=== PATIENT | female | born 1985 | race African-American/Black ===

== ENCOUNTER 2018-06-14 18:03 | Emergency (ER) | payer MEDICAID ==
[~2018-06-14] VITALS: Ht 167.6 cm; Wt 86.0 kg
[2018-06-14] MEDS ORDERED: TETRACAINE 0.5% OPHTH DROPS 4ML OP ONE (18:45)
[2018-06-14] MEDS ORDERED: FLUORESCEIN SODIUM 1MG/STRIP OP ONE (18:45)
[2018-06-14] MEDS ORDERED: TETANUS, DIPHTHERIA, PERTUSSIS VAC/PF 0.5ML (>7YR OLD) IM ONE (19:15)
[2018-06-14] MEDS ORDERED: SODIUM CHLORIDE 0.9% 1,000 ML IV ONE (19:47)
[2018-06-14] MEDS ORDERED: MORPHINE SULFATE 4 MG/ML CPJ (NOT FOR IM USE) IV STA (19:47)
[2018-06-14] MEDS ORDERED: ONDANSETRON HCL 4MG/2ML INJ IV STA (19:47)
[2018-06-14 20:50] LABS: BASOPHILS % 0.5 % (0.0-2.0); EOSINOPHILS % 0.5 % (0.0-5.0); HEMATOCRIT. 35.3 % (36.0-48.0); HEMOGLOBIN. 11.8 g/dL (12.0-16.0); MEAN CORPUSCULAR HEMOGLOBIN 27.8 pg (28.0-32.0); MEAN CORPUSCULAR VOLUME 83.3 fL (81.0-99.0); MONOCYTES % 4.4 % (2.0-8.0); NEUTROPHILS % 45.6 % (40.0-76.0); PLATELET 229 x1000/uL (130-400); RED BLOOD CELL COUNT 4.24 mill/uL (4.2-5.4); RED CELL DISTRIBUTION WIDTH 16.6 % (11.6-14.6)
[2018-06-14 20:53] LABS: PROTHROMBIN TIME 10.3 sec (9.1-11.1)
[2018-06-14 20:55] LABS: CHLORIDE 111 mEq/L (98-107)
[2018-06-14 21:03] LABS: HCG SCREEN NEGATIVE
[2018-06-15] MEDS ORDERED: HYDROCODONE/ACETAMINOPHEN 5/325MG TABLET PO ONE
[2018-06-15 02:27] VITALS: BP 107/61
== END 2018-06-15 02:30 | disposition home or self-care (01) ==
LOC: ER 18:03
DX: S01.111A Laceration without foreign body of right eyelid and periocular area, initial encounter (principal); H11.31 Conjunctival hemorrhage, right eye; F17.200 Nicotine dependence, unspecified, uncomplicated; Z91.013 Allergy to seafood; Y04.0XXA Assault by unarmed brawl or fight, initial encounter; Y93.89 Activity, other specified; Y92.89 Other specified places as the place of occurrence of the external cause; Y99.8 Other external cause status
CPT/HCPCS: 36415; 80053; 84703; 85025; 85610; 90471; 90715; 96374; 96375; 99284; J2270; J2405; J7030

== ENCOUNTER 2020-07-06 15:11 | Inpatient (IN) | payer MEDICAID ==
[~2020-07-06] VITALS: Ht 177.8 cm; Wt 78.0 kg
[2020-07-06] MEDS ORDERED: NALOXONE HCL 1 MG/ML 2ML VIAL IV ONE (17:00)
[2020-07-06] MEDS ORDERED: DEXAMETHASONE 4MG/ML 1ML VIAL IV ONE (17:45)
[2020-07-06] MEDS ORDERED: AZITHROMYCIN 500 MG in DEXT 5% WATER 250 ML IV SCH (17:45)
[2020-07-06 17:46] LABS: BASOPHILS % 0.3 % (0.0-2.0); EOSINOPHILS % 0.1 % (0.0-5.0); HEMATOCRIT. 38.6 % (36.0-48.0); HEMOGLOBIN. 12.8 g/dL (12.0-16.0); LYMPHOCYTES % 10.8 % (20.0-50.0); MEAN CORPUSCULAR HEMOGLOBIN 27.5 pg (28.0-32.0); MEAN CORPUSCULAR VOLUME 82.5 fL (81.0-99.0); MEAN PLATELET VOLUME 10.6 fl (7.4-10.4); MONOCYTES % 2.1 % (2.0-8.0); NEUTROPHILS % 86.7 % (40.0-76.0); PLATELET 246 x1000/uL (130-400); RED BLOOD CELL COUNT 4.67 mill/uL (4.2-5.4); RED CELL DISTRIBUTION WIDTH 19.1 % (11.6-14.6)
[2020-07-06 17:50] LABS: CHLORIDE 104 mEq/L (98-107)
[2020-07-06] MEDS ORDERED: SODIUM CHLORIDE 0.9% 1,000 ML IV ONE (22:45)
[2020-07-06 22:58] LABS: CLARITY URINE CLOUDY (CLEAR); COLOR URINE YELLOW (YELLOW); KETONES URINE 1+ (NEGATIVE); LEUKOCYTE ESTERASE URINE NEGATIVE (NEGATIVE); NITRITE URINE NEGATIVE (NEGATIVE); OCCULT BLOOD URINE 3+ (NEGATIVE); PROTEIN URINE 1+ (NEGATIVE); SPECIFIC GRAVITY URINE 1.021 (1.005-1.030)
[2020-07-06 23:11] LABS: *BARBITURATES SCREEN URINE NEGATIVE (NEGATIVE); *BENZODIAZEPINES SCREEN URINE NEGATIVE (NEGATIVE); *COCAINE SCREEN URINE NEGATIVE (NEGATIVE); METHADONE URINE SCREEN NEGATIVE (NEGATIVE)
[2020-07-06 23:12] LABS: PHENCYCLIDINE URINE SCREEN NEGATIVE (NEGATIVE)
[2020-07-06 23:23] LABS: *AMPHETAMINES SCREEN URINE PRESUMTIVE POSITIVE (NEGATIVE); CANNABINOID URINE SCREEN PRESUMTIVE POSITIVE (NEGATIVE); OPIATES URINE SCREEN PRESUMTIVE POSITIVE (NEGATIVE)
[2020-07-07] MEDS ORDERED: SODIUM CHLORIDE 0.9% 1,000 ML IV ONE (03:15)
[2020-07-07] MEDS ORDERED: CEFTRIAXONE 1 G PREMIX 50 ML IV SCH (09:15)
[2020-07-07] MEDS ORDERED: ONDANSETRON HCL 4MG/2ML INJ IV PRN (09:15)
[2020-07-07] MEDS ORDERED: ACETAMINOPHEN 325MG TABLET PO PRN (09:15)
[2020-07-07] MEDS ORDERED: CEFTRIAXONE SODIUM 1 G/VIAL ONE (09:56)
[2020-07-07] MEDS: ENOXAPARIN 40MG/0.4ML SYR SUBCUT SCH (10:00)
[2020-07-07] MEDS ORDERED: CEFTRIAXONE 1,000 MG in DEXTROSE 5% WATER 50 ML IV SCH (11:00)
[2020-07-07] MEDS: CEFTRIAXONE 1 G PREMIX 50 ML IV SCH (11:35)
[2020-07-08] MEDS ORDERED: AZITHROMYCIN 250 MG TABLET PO SCH (09:00)
[2020-07-08] MEDS: ENOXAPARIN 40MG/0.4ML SYR SUBCUT SCH (09:58)
[2020-07-08] MEDS: CEFTRIAXONE 1 G PREMIX 50 ML IV SCH (12:27)
[2020-07-08] MEDS ORDERED: LEVO500T2 MT (15:56)
[2020-07-08 16:42] VITALS: BP 112/69
[2020-07-09] MEDS ORDERED: CEFTRIAXONE 1,000 MG in DEXTROSE 5% WATER 50 ML IV SCH (09:00)
[2020-07-23 10:06] LABS: BARBITURATE SCREEN Negative ug/mL (Cutoff:0.1); BENZODIAZEPINE SCREEN Negative ng/mL (Cutoff:20); OPIATES SCREEN Negative ng/mL (Cutoff:5); PHENCYCLIDINE SCREEN Negative ng/mL (Cutoff:8)
== END 2020-07-08 17:00 | disposition home or self-care (01) | DRG 817 ==
LOC: ER 15:11 → MICUSO 21:40 → EDBEDREQTM 21:46 → EDBEDREQ 21:46 → 8WST 07-08 16:34 → MICUSO 07-08 16:48
PROVIDERS: ADMIT Internal Medicine; ATTEND Internal Medicine
DX: T43.622A Poisoning by amphetamines, intentional self-harm, initial encounter (principal); J68.0 Bronchitis and pneumonitis due to chemicals, gases, fumes and vapors; J96.00 Acute respiratory failure, unspecified whether with hypoxia or hypercapnia; F12.10 Cannabis abuse, uncomplicated; F41.9 Anxiety disorder, unspecified; K59.00 Constipation, unspecified; Z20.828 Contact with and (suspected) exposure to other viral communicable diseases; E87.1 Hypo-osmolality and hyponatremia; F15.10 Other stimulant abuse, uncomplicated; F11.10 Opioid abuse, uncomplicated; Z71.51 Drug abuse counseling and surveillance of drug abuser; Y92.89 Other specified places as the place of occurrence of the external cause
CPT/HCPCS: 36415; 71045; 80053; 80305; 80307; 81003; 83880; 84484; 85025; 87635; 93005; 99285; J0456; J0696; J1100; J1650; J2310; J7030; J7060

== ENCOUNTER 2023-01-12 07:31 | Emergency (ER) | payer MEDICAID ==
[~2023-01-12] VITALS: Ht 172.7 cm; Wt 81.6 kg
[~2023-01-12 07:31] MED LIST: LEVO500T2 MT
[2023-01-12] MEDS ORDERED: ASPIRIN 81MG TABLET PO ONE (08:15)
[2023-01-12 08:40] LABS: BASOPHILS % 0.7 % (0.0-2.0); EOSINOPHILS % 2.2 % (0.0-5.0); HEMATOCRIT. 34.8 % (36.0-48.0); LYMPHOCYTES % 51.1 % (20.0-50.0); MEAN CORPUSCULAR HEMOGLOBIN 30.3 pg (28.0-32.0); MEAN PLATELET VOLUME 8.7 fl (7.4-10.4); MONOCYTES % 5.7 % (2.0-8.0); NEUTROPHILS % 40.3 % (40.0-76.0); PLATELET 199 x1000/uL (130-400); RED BLOOD CELL COUNT 3.96 mill/uL (4.2-5.4); RED CELL DISTRIBUTION WIDTH 14.4 % (11.6-14.6)
[2023-01-12 08:47] LABS: CHLORIDE 112 mEq/L (98-107)
[2023-01-12 08:54] LABS: CLARITY URINE CLEAR (CLEAR); COLOR URINE YELLOW (YELLOW); KETONES URINE NEGATIVE (NEGATIVE); LEUKOCYTE ESTERASE URINE NEGATIVE (NEGATIVE); NITRITE URINE NEGATIVE (NEGATIVE); OCCULT BLOOD URINE NEGATIVE (NEGATIVE); PH URINE 7.5 (4.5-8.0); PROTEIN URINE NEGATIVE (NEGATIVE); SPECIFIC GRAVITY URINE 1.017 (1.005-1.030)
[2023-01-12] MEDS ORDERED: IBUP-2029 MT (09:50)
[2023-01-12] MEDS ORDERED: BECL10.62 INH (09:50)
[2023-01-12 10:23] VITALS: BP 118/60
== END 2023-01-12 10:23 | disposition home or self-care (01) ==
LOC: ER 08:34
DX: R07.89 Other chest pain (principal); J06.9 Acute upper respiratory infection, unspecified; F12.10 Cannabis abuse, uncomplicated; F15.10 Other stimulant abuse, uncomplicated; F11.24 Opioid dependence with opioid-induced mood disorder
CPT/HCPCS: 36415; 71045; 80053; 81003; 83880; 84484; 85025; 93005; 99285; Z7610

== ENCOUNTER 2024-01-01 03:16 | Emergency (ER) | payer MEDICAID ==
[~2024-01-01] VITALS: Ht 167.6 cm; Wt 83.0 kg
[~2024-01-01 03:16] MED LIST changes: +BECL10.62 INH; +IBUP-2029 MT
[2024-01-01 03:23] VITALS: TEMP 98.6; O2SAT 98
[2024-01-01 03:54] LABS: BASOPHILS % 0.4 % (0.0-2.0); EOSINOPHILS % 0.2 % (0.0-5.0); HEMATOCRIT. 39.9 % (36.0-48.0); HEMOGLOBIN. 13.6 g/dL (12.0-16.0); LYMPHOCYTES % 14.5 % (20.0-50.0); MEAN CORPUSCULAR HEMOGLOBIN 29.4 pg (28.0-32.0); MEAN CORPUSCULAR VOLUME 86.4 fL (81.0-99.0); MEAN PLATELET VOLUME 9.1 fl (7.4-10.4); MONOCYTES % 4.1 % (2.0-8.0); NEUTROPHILS % 80.8 % (40.0-76.0); PLATELET 262 x1000/uL (130-400); RED BLOOD CELL COUNT 4.62 mill/uL (4.2-5.4); RED CELL DISTRIBUTION WIDTH 14.9 % (11.6-14.6); WHITE BLOOD COUNT 5.4 x1000/uL (4.5-11.0)
[2024-01-01 03:59] LABS: CHLORIDE 104 mEq/L (98-107); POTASSIUM 3.5 mEq/L (3.5-5.1); SODIUM 138 mEq/L (136-145)
[2024-01-01 04:00] LABS: CALCIUM 10.7 mg/dL (8.7-10.4); CARBON DIOXIDE 22 mEq/L (21-32)
[2024-01-01 04:05] LABS: CREATININE 1.1 mg/dL (0.6-1.0); GLUCOSE 195 mg/dL (70-105); UREA NITROGEN BLOOD 7 mg/dL (9-23)
[2024-01-01 04:07] LABS: ACETAMINOPHEN < 2 ug/mL (10-30)
[2024-01-01 04:28] LABS: ETHANOL BLOOD < 10 mg/dL (<10)
[2024-01-01 04:38] LABS: HCG SCREEN NEGATIVE
[2024-01-01] MEDS: LORAZEPAM 2MG/ML INJ IV STA (05:17)
[2024-01-01] MEDS: SODIUM CHLORIDE 0.9% 1,000 ML IV ONE (05:17)
[2024-01-01 05:21] VITALS: BP 135/88; PULSE 114; RESP 18
== END 2024-01-01 07:14 | disposition home or self-care (01) ==
LOC: ER 03:16
DX: F15.90 Other stimulant use, unspecified, uncomplicated (principal); F12.10 Cannabis abuse, uncomplicated; Z88.5 Allergy status to narcotic agent; Z98.890 Other specified postprocedural states
CPT/HCPCS: 80048; 80307; 80329; 80320; 84703; 85025; 36415; 96361; 96374; 99283; J2060; J7030; Z7610 ×5; G0480

== ENCOUNTER 2024-01-14 15:25 | Emergency (ER) | payer MEDICAID ==
[~2024-01-14] VITALS: Ht 172.7 cm; Wt 72.0 kg
[2024-01-14] MEDS: LORAZEPAM 1MG TABLET PO ONE (15:45)
[2024-01-14 16:07] LABS: CARBON DIOXIDE 22 mEq/L (21-32); CHLORIDE 106 mEq/L (98-107); POTASSIUM 3.2 mEq/L (3.5-5.1); SODIUM 142 mEq/L (136-145)
[2024-01-14 16:08] LABS: CALCIUM 10.6 mg/dL (8.7-10.4)
[2024-01-14 16:11] LABS: BASOPHILS % 0.5 % (0.0-2.0); HEMATOCRIT. 41.2 % (36.0-48.0); HEMOGLOBIN. 13.9 g/dL (12.0-16.0); LYMPHOCYTES % 12.1 % (20.0-50.0); MEAN CORPUSCULAR HEMOGLOBIN 29.3 pg (28.0-32.0); MEAN CORPUSCULAR HGB CONC 33.6 g/dL (31.0-37.0); MEAN CORPUSCULAR VOLUME 87.2 fL (81.0-99.0); MEAN PLATELET VOLUME 9.7 fl (7.4-10.4); MONOCYTES % 4.4 % (2.0-8.0); PLATELET 328 x1000/uL (130-400); RED BLOOD CELL COUNT 4.73 mill/uL (4.2-5.4); RED CELL DISTRIBUTION WIDTH 15.1 % (11.6-14.6); WHITE BLOOD COUNT 8.4 x1000/uL (4.5-11.0)
[2024-01-14 16:12] LABS: GLUCOSE 149 mg/dL (70-105)
[2024-01-14 16:13] LABS: CREATININE 1.5 mg/dL (0.6-1.0); ETHANOL BLOOD < 10 mg/dL (<10); UREA NITROGEN BLOOD 15 mg/dL (9-23)
[2024-01-14 16:15] LABS: ACETAMINOPHEN < 2 ug/mL (10-30)
[2024-01-14 16:29] LABS: HCG SCREEN NEGATIVE
[2024-01-14] MEDS: LORAZEPAM 2MG/ML INJ IM ONE (16:30)
[2024-01-14] MEDS: DIPHENHYDRAMINE 50MG/ML VIAL IM ONE (16:30)
[2024-01-14] MEDS: HALOPERIDOL LACTATE 5MG/ML VIAL IM ONE (16:30)
[2024-01-14 18:15] VITALS: O2SAT 99
[2024-01-14 21:35] VITALS: BP 133/87; PULSE 72; RESP 18; TEMP 98.1
== END 2024-01-14 21:58 | disposition home or self-care (01) ==
LOC: ER 15:25
DX: R41.82 Altered mental status, unspecified (principal); F15.10 Other stimulant abuse, uncomplicated; F12.10 Cannabis abuse, uncomplicated
CPT/HCPCS: 80048; 80307; 80329; 80320; 84703; 85025; 36415; 93005; 96372; 99291; J1200; J1630; J2060; G0480

== ENCOUNTER 2024-01-26 03:51 | Emergency (ER) | payer MEDICAID ==
[~2024-01-26] VITALS: Ht 167.6 cm; Wt 82.0 kg
[2024-01-26] MEDS: SODIUM CHLORIDE 0.9% 1,000 ML IV ONE (04:28)
[2024-01-26 04:32] LABS: BASOPHILS % 0.3 % (0.0-2.0); EOSINOPHILS % 0.1 % (0.0-5.0); HEMATOCRIT. 39.6 % (36.0-48.0); HEMOGLOBIN. 13.2 g/dL (12.0-16.0); MEAN CORPUSCULAR HEMOGLOBIN 29.2 pg (28.0-32.0); MEAN CORPUSCULAR HGB CONC 33.2 g/dL (31.0-37.0); MEAN CORPUSCULAR VOLUME 87.8 fL (81.0-99.0); MEAN PLATELET VOLUME 9.3 fl (7.4-10.4); MONOCYTES % 4.3 % (2.0-8.0); NEUTROPHILS % 84.3 % (40.0-76.0); PLATELET 265 x1000/uL (130-400); RED BLOOD CELL COUNT 4.52 mill/uL (4.2-5.4); WHITE BLOOD COUNT 8.7 x1000/uL (4.5-11.0)
[2024-01-26 04:51] LABS: CARBON DIOXIDE 13 mEq/L (21-32); CHLORIDE 104 mEq/L (98-107); POTASSIUM 3.6 mEq/L (3.5-5.1); SODIUM 139 mEq/L (136-145)
[2024-01-26 04:52] LABS: CALCIUM 9.9 mg/dL (8.7-10.4)
[2024-01-26 04:56] LABS: CREATININE 1.7 mg/dL (0.6-1.0)
[2024-01-26 04:57] LABS: ETHANOL BLOOD < 10 mg/dL (<10); GLUCOSE 140 mg/dL (70-105); HCG SCREEN NEGATIVE; UREA NITROGEN BLOOD 16 mg/dL (9-23)
[2024-01-26 04:58] LABS: TROPONIN I HIGH SENSITIVITY 30 ng/L (3.0-34)
[2024-01-26] MEDS: LORAZEPAM 1MG TABLET PO ONE (05:21)
[2024-01-26 06:06] LABS: ACETAMINOPHEN 2 ug/mL (10-30); ALANINE AMINOTRANSFERASE 26 IU/L (10-49); ALBUMIN 4.8 g/dL (3.2-4.8); ASPARTATE AMINOTRANSFERASE 35 IU/L (<34); BILIRUBIN DIRECT 0.3 mg/dL (<=3.0); BILIRUBIN TOTAL 0.8 mg/dL (0.1-1.0)
[2024-01-26] MEDS: OLANZAPINE 10 MG/VIAL IM ONE (07:17)
[2024-01-26] MEDS: LORAZEPAM 2MG/ML INJ IM ONE (07:17)
[2024-01-26 08:55] VITALS: O2SAT 99
[2024-01-26] MEDS: OLANZAPINE 5MG TABLET ODT PO SCH (13:58)
[2024-01-26 14:05] LABS: CLARITY URINE CLOUDY (CLEAR); COLOR URINE DARK YELLOW (YELLOW); GLUCOSE URINE NEGATIVE (NEGATIVE); KETONES URINE 2+ (NEGATIVE); LEUKOCYTE ESTERASE URINE NEGATIVE (NEGATIVE); NITRITE URINE NEGATIVE (NEGATIVE); OCCULT BLOOD URINE NEGATIVE (NEGATIVE); PH URINE 5.5 (4.5-8.0); PROTEIN URINE 2+ (NEGATIVE)
[2024-01-26 14:18] LABS: HYALINE CASTS URINE TNTC /lpf; MUCUS URINE 4+ /lpf (< = 2+); SQUAMOUS EPITHELIAL CELL URINE 2+ /lpf (RARE/1+)
[2024-01-26 14:19] LABS: COARSE GRANULAR CASTS URINE 0-5 /lpf
[2024-01-26 14:21] LABS: FINE GRANULAR CASTS URINE 0-5 /lpf; RBC URINE 0-2 /hpf (0-2)
[2024-01-26 14:22] LABS: BACTERIA URINE TRACE
[2024-01-26 14:31] VITALS: BP 122/78; PULSE 96; RESP 16; TEMP 98.7
[2024-01-26 14:37] LABS: *AMPHETAMINES SCREEN URINE PRESUMPTIVE POSITIVE (NEGATIVE); *BARBITURATES SCREEN URINE NEGATIVE (NEGATIVE); *BENZODIAZEPINES SCREEN URINE NEGATIVE (NEGATIVE); *COCAINE SCREEN URINE NEGATIVE (NEGATIVE)
[2024-01-26 14:38] LABS: CANNABINOID URINE SCREEN NEGATIVE (NEGATIVE); ECSTASY MDMA SCREEN URINE CONF.TEST INDICATED (NEGATIVE); METHADONE URINE SCREEN NEGATIVE (NEGATIVE); OPIATES URINE SCREEN NEGATIVE (NEGATIVE); PHENCYCLIDINE URINE SCREEN NEGATIVE (NEGATIVE)
== END 2024-01-26 14:36 | disposition home or self-care (01) ==
LOC: ER 03:51
DX: R45.851 Suicidal ideations (principal); I49.9 Cardiac arrhythmia, unspecified; Z00.00 Encounter for general adult medical examination without abnormal findings; Z20.822 Contact with and (suspected) exposure to COVID-19
CPT/HCPCS: 80076; 80305; 80048; 81003; 80307; 80329; 80320; 84703; 83880; 83690; 85025; 84484; 36415; 71045; 93005; 96360; 96372; 99291; 87426; J3490; J2060; J7030; Z7610; G0480

== ENCOUNTER 2025-03-22 06:52 | Emergency (ER) | payer MEDICAID ==
[~2025-03-22] VITALS: Ht 175.3 cm; Wt 87.9 kg
[2025-03-22 06:54] VITALS: O2SAT 99
[2025-03-22 08:09] LABS: BASOPHILS % 0.6 % (0.0-2.0); EOSINOPHILS % 2.1 % (0.0-5.0); HEMATOCRIT. 34.2 % (36.0-48.0); HEMOGLOBIN. 11.5 g/dL (12.0-16.0); LYMPHOCYTES % 35.9 % (20.0-50.0); MEAN PLATELET VOLUME 8.6 fl (7.4-10.4); MONOCYTES % 5.8 % (2.0-8.0); NEUTROPHILS % 55.6 % (40.0-76.0); PLATELET 210 x1000/uL (130-400); RED BLOOD CELL COUNT 3.82 mill/uL (4.2-5.4); RED CELL DISTRIBUTION WIDTH 13.9 % (11.6-14.6)
[2025-03-22 08:23] LABS: CREATININE 0.8 mg/dL (0.6-1.0); UREA NITROGEN BLOOD 15 mg/dL (9-23)
[2025-03-22 08:25] LABS: ASPARTATE AMINOTRANSFERASE 16 IU/L (<34); BILIRUBIN DIRECT 0.2 mg/dL (<=3.0)
[2025-03-22 08:26] LABS: BILIRUBIN TOTAL 0.7 mg/dL (0.1-1.0); PROTEIN TOTAL 6.7 g/dL (6.0-8.3)
[2025-03-22 08:30] LABS: HCG SCREEN NEGATIVE
[2025-03-22 08:43] LABS: CLARITY URINE CLEAR (CLEAR); COLOR URINE YELLOW (YELLOW); GLUCOSE URINE NEGATIVE (NEGATIVE); KETONES URINE NEGATIVE (NEGATIVE); LEUKOCYTE ESTERASE URINE NEGATIVE (NEGATIVE); NITRITE URINE NEGATIVE (NEGATIVE); OCCULT BLOOD URINE NEGATIVE (NEGATIVE); PH URINE 5.0 (4.5-8.0); PROTEIN URINE NEGATIVE (NEGATIVE); SPECIFIC GRAVITY URINE 1.029 (1.005-1.030); UROBILINOGEN URINE 1.0 E.U./dL (0.2-1.0)
[2025-03-22] MEDS: CEFTRIAXONE SODIUM 500MG VIAL IM NR (08:48)
[2025-03-22] MEDS ORDERED: DOXY100T2 MT (10:30)
[2025-03-22 10:56] VITALS: BP 127/81; PULSE 98; RESP 16; TEMP 37.2; O2SAT 100
[2025-03-22] MEDS ORDERED: METR-167 MT (12:32)
[2025-03-24 04:12] LABS: CHLAMYDIA TRACHOMATIS NAA Negative (Negative); NEISSERIA GONORRHOEAE NAA Negative (Negative)
== END 2025-03-22 10:57 | disposition home or self-care (01) ==
LOC: ER 06:52
DX: N76.0 Acute vaginitis (principal); B96.89 Other specified bacterial agents as the cause of diseases classified elsewhere; F15.90 Other stimulant use, unspecified, uncomplicated; Z98.890 Other specified postprocedural states; Z79.899 Other long term (current) drug therapy
CPT/HCPCS: 99283; 86592; 87491; 87591; 80076; 80048; 81003; 84703; 83690; 85025; 87210; 36415; 96372; J0696